=== PATIENT | male | born 1990 | race Caucasian/White ===

== ENCOUNTER 2019-03-03 17:51 | Emergency (ER) | payer OTHER ==
[~2019-03-03] VITALS: Ht 190.5 cm; Wt 120.2 kg
[2019-03-03 18:42] LABS: INFLUENZA A ANTIGEN Negative (Negative); INFLUENZA B ANTIGEN Negative (Negative)
[2019-03-03 19:21] LABS: ABSOLUTE EOSINOPHILS 0.1 thou/uL (0.0-0.7); ABSOLUTE LYMPHOCYTES 1.2 thou/uL (0.8-5.3); ABSOLUTE MONOCYTES 0.8 thou/uL (0.0-1.2); ABSOLUTE NEUTROPHILS 7.9 thou/uL (1.6-8.1); BASOPHILS 0.2 %; EOSINOPHILS 0.6 %; HEMATOCRIT 41.7 % (42.0-52.0); HEMOGLOBIN 15.1 gm/dL (14.0-18.0); LYMPHOCYTES 11.7 %; MCHC 36.2 g/dL (28.0-37.0); MCV 85.6 fL (80.0-100.0); MONOCYTES 8.2 %; MPV 8.5 fl. (7.2-11.1); NUCLEATED RBCS 0 /100WBC; PLATELET COUNT* 270 thou/uL (150-400); POLYS 79.3 %; RBC 4.88 mil/uL (4.50-6.00); RDW-CV 12.9 % (10.5-14.5)
[2019-03-03 19:46] LABS: CALCIUM 8.3 mg/dL (8.5-10.1); POTASSIUM 3.6 mmol/L (3.5-5.1)
[2019-03-03 19:57] LABS: ALBUMIN 3.5 g/dL (3.4-5.0); TOTAL BILIRUBIN 0.6 mg/dL (<0.1-1.0); TOTAL PROTEIN 8.2 g/dL (6.4-8.2)
[2019-03-03 20:13] LABS: PLATELET ESTIMATE ADEQUATE
[2019-03-03] MEDS ORDERED: IBU600 MG PO (21:32)
[2019-03-03] MEDS ORDERED: PROAIR HFA8.5 GM INH (21:32)
[2019-03-03] MEDS ORDERED: AUGMENTIN 875-1 EACH PO (21:32)
[2019-03-03] MEDS ORDERED: PREDNISONE 10 M10 MG PO (21:32)
[2019-03-03 21:46] VITALS: BP 165/94
== END 2019-03-03 21:48 | disposition home or self-care (01) ==
LOC: M.ERS 17:51
PROVIDERS: Family Medicine; Physician Assistant
DX: J18.9 Pneumonia, unspecified organism (principal); R09.02 Hypoxemia